=== PATIENT | female | born 1990 | race Caucasian/White ===

== ENCOUNTER 2017-02-01 11:05 | Emergency (ER) | payer OTHER ==
[~2017-02-01] VITALS: Ht 165.1 cm; Wt 61.4 kg
[2017-02-01 14:09] VITALS: BP 115/65
== END 2017-02-01 14:09 | disposition home or self-care (01) ==
LOC: ED 11:05
PROC: BW28ZZZ Computerized Tomography (CT Scan) of Head (ICD-10-PCS; principal; 2017-02-01)
DX: F07.81 Postconcussional syndrome (principal); R51 Headache; Z34.92 Encounter for supervision of normal pregnancy, unspecified, second trimester